=== PATIENT | female | born 1980 | race Caucasian/White ===

== ENCOUNTER 2019-06-16 15:59 | Inpatient (IN) | payer MEDICAID ==
[2019-06-16 18:45] LABS: ADD MAN DIFF? NO
[2019-06-16 18:48] LABS: BASOPHILS % 0.5 % (0.0-2.0); EOSINOPHILS % 0.5 % (0.0-7.0); HEMATOCRIT 36.7 % (37.0-47.0); HEMOGLOBIN 11.7 g/dl (12.0-16.0); LYMPHOCYTES # 2.9 10^3/ul (0.8-2.9); LYMPHOCYTES % 35.4 % (15.0-51.0); MEAN CORPUSCULAR HEMOGLOBIN 29.8 pg (29.0-33.0); MEAN CORPUSCULAR HGB CONC 31.9 g/dl (32.0-37.0); MEAN CORPUSCULAR VOLUME 93.4 fl (82.0-101.0); MEAN PLATELET VOLUME 12.6 fl (7.4-10.4); MONOCYTE # 0.6 10^3/ul (0.3-0.9); MONOCYTES % 6.9 % (0.0-11.0); NEUTROPHIL # 4.4 10^3/ul (1.6-7.5); NEUTROPHILS % 53.7 % (39.0-77.0); NUCLEATED RED BLOOD CELLS # 0.2 10^3/ul (0.0-0.0); NUCLEATED RED BLOOD CELLS% 1.8 /100WBC (0.0-0.0); PLATELET COUNT 166 10^3/UL (140-415); RED BLOOD COUNT 3.93 10^6/ul (4.20-5.40); RED CELL DISTRIBUTION WIDTH 13.7 % (11.5-14.5)
[2019-06-16 18:48] LABS: WHITE BLOOD COUNT 8.3 10^3/ul (4.8-10.8)
[2019-06-16 19:05] LABS: ALANINE AMINOTRANSFERASE 58 IU/L (13-69); ALBUMIN 3.4 g/dl (3.3-4.9); ALBUMIN/GLOBULIN RATIO 0.89; ALKALINE PHOSPHATASE 245 IU/L (42-121); ANION GAP 8 (5-13); ASPARTATE AMINO TRANSFERASE 71 IU/L (15-46); BILIRUBIN,INDIRECT 0.3 mg/dl (0-1.1); BILIRUBIN,TOTAL 0.3 mg/dl (0.2-1.3); BLOOD UREA NITROGEN 16 mg/dl (7-20); CALCIUM 8.8 mg/dl (8.4-10.2); CARBON DIOXIDE 22 mmol/L (21-31); CHLORIDE 108 mmol/L (97-110); CREATININE 0.77 mg/dl (0.44-1.00); Estimated GFR > 60 mL/min (>60); GLUCOSE 90 mg/dl (70-220); POTASSIUM 4.2 mmol/L (3.5-5.1); SODIUM 138 mmol/L (135-144); TOTAL PROTEIN 7.2 g/dl (6.1-8.1); URIC ACID 6.4 mg/dl (3.1-7.9)
[2019-06-16 19:07] LABS: INR 0.87; PROTIME 11.9 Sec (11.9-14.9); PT RATIO 0.9
[2019-06-16 19:08] LABS: PARTIAL THROMBOPLASTIN TIME 25.7 Sec (23.0-35.0)
[2019-06-16] MEDS ORDERED: METHYLERGONOVINE 0.2 MG INJ IM (20:00)
[2019-06-16] MEDS ORDERED: OXYTOCIN 30 UNITS/LR 500 ML IV (20:00)
[2019-06-16] MEDS ORDERED: CARBOPROST 250 MCG INJ IM (20:00)
[2019-06-16] MEDS ORDERED: MISOPROSTOL 200 MCG TAB PR (20:00)
[2019-06-16 20:03] LABS: ADD UMIC NO; UR ASCORBIC ACID NEGATIVE (NEGATIVE); UR BILIRUBIN (Dip) NEGATIVE (NEGATIVE); UR BLOOD (Dip) NEGATIVE (NEGATIVE); UR CLARITY CLEAR (CLEAR); UR COLOR YELLOW (YELLOW); UR GLUCOSE (Dip) NEGATIVE (NEGATIVE); UR KETONES (Dip) NEGATIVE (NEGATIVE); UR LEUKOCYTE ESTERASE (Dip) NEGATIVE Leu/ul (NEGATIVE); UR NITRITE (Dip) NEGATIVE (NEGATIVE); UR SPECIFIC GRAVITY (Dip) 1.015 (1.003-1.030); UR TOTAL PROTEIN (Dip) NEGATIVE (NEGATIVE); UR UROBILINOGEN (Dip) NEGATIVE (NEGATIVE)
[2019-06-16] MEDS: LACTATED RINGER'S 1,000 ML IV ×2 (20:44→21:10)
[2019-06-16] MEDS: MAGNESIUM SULFATE 4 GM/100 ML 100 ML IVPB (20:46)
[2019-06-16] MEDS: MAGNESIUM SULFATE 20 GM/500 ML 500 ML IV (21:16)
[2019-06-16] MEDS: AZITHROMYCIN 500MG/NS (PMX) 250 ML IVPB (22:45)
[2019-06-16] MEDS ORDERED: ONDANSETRON 4 MG INJ (22:51)
[2019-06-16] MEDS ORDERED: DEXAMETHASONE 4 MG/ML 1 ML INJ (22:51)
[2019-06-16] MEDS ORDERED: CEFAZOLIN 1 GM INJ (22:52)
[2019-06-16] MEDS ORDERED: morphine SULFATE/PF (10 MG/10 ML) INJ (23:27)
[2019-06-16] MEDS ORDERED: ONDANSETRON 4 MG INJ IV (23:30)
[2019-06-16] MEDS ORDERED: ZOLPIDEM 5 MG TAB PO (23:30)
[2019-06-16] MEDS ORDERED: DIPHENHYDRAMINE 50 MG INJ IV (23:30)
[2019-06-16] MEDS ORDERED: NALOXONE (0.4 MG/ML) INJ IV (23:30)
[2019-06-16] MEDS ORDERED: HYDROmorphONE 0.5 MG/0.5 ML SYG IV ×2 (23:30)
[2019-06-17] MEDS ORDERED: OXYTOCIN 30 UNITS/LR 500 ML IV ×2 (00:15→01:00)
[2019-06-17] MEDS: OXYTOCIN 30 UNITS/LR 500 ML IV ×4 (00:44→17:17)
[2019-06-17] MEDS ORDERED: MISOPROSTOL 200 MCG TAB PR (01:00)
[2019-06-17] MEDS ORDERED: CARBOPROST 250 MCG INJ IM (01:00)
[2019-06-17] MEDS ORDERED: METHYLERGONOVINE 0.2 MG INJ IM (01:00)
[2019-06-17] MEDS: CEFAZOLIN 2 GM/50 ML (PMX) 50 ML IVPB (02:11)
[2019-06-17] MEDS: LANOLIN HPA 1 PKT TOP (03:58)
[2019-06-17 07:18] LABS: ADD MAN DIFF? NO
[2019-06-17 07:19] LABS: ABNORMAL IP MESSAGE 1; BASOPHILS % 0.2 % (0.0-2.0); HEMATOCRIT 34.3 % (37.0-47.0); HEMOGLOBIN 10.9 g/dl (12.0-16.0); LYMPHOCYTES # 1.2 10^3/ul (0.8-2.9); LYMPHOCYTES % 9.5 % (15.0-51.0); MEAN CORPUSCULAR HEMOGLOBIN 29.2 pg (29.0-33.0); MEAN CORPUSCULAR HGB CONC 31.8 g/dl (32.0-37.0); MEAN PLATELET VOLUME 13.1 fl (7.4-10.4); MONOCYTE # 0.3 10^3/ul (0.3-0.9); MONOCYTES % 2.4 % (0.0-11.0); NEUTROPHIL # 11.2 10^3/ul (1.6-7.5); NEUTROPHILS % 85.9 % (39.0-77.0); NUCLEATED RED BLOOD CELLS # 0.1 10^3/ul (0.0-0.0); PLATELET COUNT 174 10^3/UL (140-415); RED BLOOD COUNT 3.73 10^6/ul (4.20-5.40); RED CELL DISTRIBUTION WIDTH 13.7 % (11.5-14.5)
[2019-06-17 07:23] LABS: POSITIVE DIFF @See below
[2019-06-17 07:51] LABS: MAGNESIUM 6.6 mg/dl (1.7-2.5)
[2019-06-17] MEDS: LACTATED RINGER'S 1,000 ML IV (07:56)
[2019-06-17] MEDS: MAGNESIUM SULFATE 20 GM/500 ML 500 ML IV ×3 (07:57→13:00)
[2019-06-17] MEDS: IBUPROFEN 800 MG TAB PO ×3 (07:57→22:00)
[2019-06-17] MEDS: SENNA/DOCUSATE NA (8.6MG/50MG) TAB PO ×2 (08:12→20:34)
[2019-06-17 12:24] LABS: MAGNESIUM 7.8 mg/dl (1.7-2.5)
[2019-06-17 15:06] LABS: RAPID PLASMA REAGIN NONREACTIVE (NR)
[2019-06-17] MEDS: KETOROLAC 30 MG INJ IV ×2 (17:18→23:01)
[2019-06-17 18:52] LABS: MAGNESIUM 6.1 mg/dl (1.7-2.5)
[2019-06-18] MEDS: IBUPROFEN 800 MG TAB PO ×3 (05:38→21:48)
[2019-06-18 08:09] LABS: ADD MAN DIFF? NO
[2019-06-18 08:17] LABS: WHITE BLOOD COUNT 14.4 10^3/ul (4.8-10.8)
[2019-06-18 08:17] LABS: BASOPHILS % 0.2 % (0.0-2.0); EOSINOPHILS % 0.2 % (0.0-7.0); HEMATOCRIT 34.4 % (37.0-47.0); LYMPHOCYTES # 2.8 10^3/ul (0.8-2.9); LYMPHOCYTES % 19.1 % (15.0-51.0); MEAN CORPUSCULAR HEMOGLOBIN 29.1 pg (29.0-33.0); MEAN PLATELET VOLUME 12.3 fl (7.4-10.4); MONOCYTE # 0.7 10^3/ul (0.3-0.9); MONOCYTES % 4.6 % (0.0-11.0); NEUTROPHIL # 10.8 10^3/ul (1.6-7.5); NEUTROPHILS % 74.7 % (39.0-77.0); NUCLEATED RED BLOOD CELLS% 0.3 /100WBC (0.0-0.0); PLATELET COUNT 203 10^3/UL (140-415); RED BLOOD COUNT 3.78 10^6/ul (4.20-5.40); RED CELL DISTRIBUTION WIDTH 13.7 % (11.5-14.5)
[2019-06-18] MEDS: MAGNESIUM SULFATE 20 GM/500 ML 500 ML IV (09:00)
[2019-06-18] MEDS: SENNA/DOCUSATE NA (8.6MG/50MG) TAB PO ×2 (09:23→21:48)
[2019-06-18] MEDS: OXYCODONE/ACETAMINOPHEN (5/325) TAB PO ×2 (10:15→17:24)
[2019-06-19] MEDS: IBUPROFEN 800 MG TAB PO ×3 (05:49→21:41)
[2019-06-19] MEDS: SENNA/DOCUSATE NA (8.6MG/50MG) TAB PO ×2 (09:43→21:41)
[2019-06-19] MEDS: OXYCODONE/ACETAMINOPHEN (5/325) TAB PO (15:23)
[2019-06-19] MEDS: DIPHTH/TET/ACEL PERTUSS (ADULT) 0.5 ML VIAL IM* (17:08)
[2019-06-19] MEDS: LABETALOL 100 MG TAB PO (18:12)
[2019-06-19] MEDS: LABETALOL 200 MG TAB PO (21:41)
[2019-06-20] MEDS: IBUPROFEN 800 MG TAB PO ×2 (05:55→14:53)
[2019-06-20 06:57] LABS: ADD MAN DIFF? NO
[2019-06-20 06:59] LABS: ADD UMIC YES; UR ASCORBIC ACID NEGATIVE (NEGATIVE); UR BILIRUBIN (Dip) NEGATIVE (NEGATIVE); UR BLOOD (Dip) 3+ mg/dL (NEGATIVE); UR CLARITY CLEAR (CLEAR); UR COLOR YELLOW (YELLOW); UR GLUCOSE (Dip) NEGATIVE (NEGATIVE); UR KETONES (Dip) NEGATIVE (NEGATIVE); UR LEUKOCYTE ESTERASE (Dip) NEGATIVE Leu/ul (NEGATIVE); UR NITRITE (Dip) NEGATIVE (NEGATIVE); UR RBC 0 /HPF (0-5); UR SPECIFIC GRAVITY (Dip) 1.011 (1.003-1.030); UR SQUAMOUS EPITHELIAL CELL FEW /HPF (FEW); UR TOTAL PROTEIN (Dip) NEGATIVE (NEGATIVE); UR UROBILINOGEN (Dip) NEGATIVE (NEGATIVE); UR WBC 1 /HPF (0-5)
[2019-06-20 07:06] LABS: BASOPHILS % 0.3 % (0.0-2.0); EOSINOPHILS # 0.1 10^3/ul (0.0-0.5); HEMATOCRIT 31.9 % (37.0-47.0); HEMOGLOBIN 9.9 g/dl (12.0-16.0); LYMPHOCYTES # 1.9 10^3/ul (0.8-2.9); LYMPHOCYTES % 17.4 % (15.0-51.0); MEAN CORPUSCULAR HEMOGLOBIN 29.2 pg (29.0-33.0); MEAN CORPUSCULAR VOLUME 94.1 fl (82.0-101.0); MEAN PLATELET VOLUME 11.4 fl (7.4-10.4); MONOCYTE # 0.5 10^3/ul (0.3-0.9); MONOCYTES % 4.9 % (0.0-11.0); NEUTROPHIL # 8.3 10^3/ul (1.6-7.5); NEUTROPHILS % 75.5 % (39.0-77.0); NUCLEATED RED BLOOD CELLS% 0.2 /100WBC (0.0-0.0); PLATELET COUNT 234 10^3/UL (140-415); RED BLOOD COUNT 3.39 10^6/ul (4.20-5.40); RED CELL DISTRIBUTION WIDTH 14.3 % (11.5-14.5)
[2019-06-20 07:22] LABS: PROTIME 12.3 Sec (11.9-14.9)
[2019-06-20 07:36] LABS: ALANINE AMINOTRANSFERASE 75 IU/L (13-69); ALBUMIN 2.8 g/dl (3.3-4.9); ALBUMIN/GLOBULIN RATIO 0.84; ALKALINE PHOSPHATASE 189 IU/L (42-121); ANION GAP 6 (5-13); ASPARTATE AMINO TRANSFERASE 80 IU/L (15-46); BILIRUBIN,INDIRECT 0.4 mg/dl (0-1.1); BILIRUBIN,TOTAL 0.4 mg/dl (0.2-1.3); BLOOD UREA NITROGEN 9 mg/dl (7-20); CALCIUM 8.3 mg/dl (8.4-10.2); CARBON DIOXIDE 24 mmol/L (21-31); CHLORIDE 108 mmol/L (97-110); CREATININE 0.61 mg/dl (0.44-1.00); Estimated GFR > 60 mL/min (>60); GLUCOSE 86 mg/dl (70-220); POTASSIUM 4.3 mmol/L (3.5-5.1); SODIUM 138 mmol/L (135-144); TOTAL PROTEIN 6.1 g/dl (6.1-8.1); URIC ACID 4.9 mg/dl (3.1-7.9)
[2019-06-20] MEDS: LABETALOL 200 MG TAB PO ×2 (09:00→10:05)
[2019-06-20] MEDS ORDERED: DIPHTH/TET/ACEL PERTUSS (ADULT) 0.5 ML VIAL IM* (09:00)
[2019-06-20] MEDS: SENNA/DOCUSATE NA (8.6MG/50MG) TAB PO (10:04)
== END 2019-06-20 15:44 | disposition home or self-care (01) | DRG 788 ==
LOC: OBT 15:59 → L-D 06-17 00:31 → PP1 06-17 02:41 → L-D 18:32 → OBT 19:40 → L-D 19:40
PROC: 10D00Z1 Extraction of Products of Conception, Low, Open Approach (ICD-10-PCS; principal; 2019-06-16)
DX: O14.14 Severe pre-eclampsia complicating childbirth (principal); O99.89 Other specified diseases and conditions complicating pregnancy, childbirth and the puerperium; N73.6 Female pelvic peritoneal adhesions (postinfective); Z37.0 Single live birth; Z3A.37 37 weeks gestation of pregnancy; Z53.09 Procedure and treatment not carried out because of other contraindication
CPT/HCPCS: 76815; 76818; 80053; 81001; 81003; 83735; 84560; 85025; 85384; 85610; 85730; 86592; 86850; 86900; 86901; 90715; 99464